=== PATIENT | female | born 1970 | race American Indian/Alaskan Native ===

== ENCOUNTER 2019-12-30 08:00 | Outpatient (CLI) | payer BC ==
[2019-12-30 09:10] LABS: Hematocrit 29.5 % (30.3-42.9); Hemoglobin 9.2 gm/dl (10.1-14.3); Mean Corpuscular HGB Conc 31 % (30-34); Mean Corpuscular Volume 71 fl (79-97); Platelet Count 358 K/mm3 (140-440); Red Blood Count 4.15 M/mm3 (3.65-5.03); Red Cell Distribution Width 17.9 % (13.2-15.2)
[2019-12-30 09:42] LABS: Calcium 9.3 mg/dL (8.4-10.2)
[2019-12-30 10:34] LABS: Total Cells Counted 100
[2019-12-30 10:36] LABS: Hypochromasia 1+; Platelet Estimate Consistent w Auto; Tear Drop Cells Few
[2019-12-30 13:00] VITALS: BP 189/89
== END 2019-12-30 10:00 | disposition home or self-care (01) ==
LOC: LAB 08:00 → EDSTATUS 01-01 11:15
PROVIDERS: ATTEND Obstetrics & Gynecology
DX: D25.9 Leiomyoma of uterus, unspecified (principal); D64.9 Anemia, unspecified; Z20.828 Contact with and (suspected) exposure to other viral communicable diseases
CPT/HCPCS: 36415; 80048; 84703; 85007; 85025; U0003